=== PATIENT | female | born 1985 | race American Indian/Alaskan Native ===

== ENCOUNTER 2017-09-23 19:24 | Emergency (ER) | payer SELFPAY ==
[2017-09-23 20:03] LABS: Hemoglobin 12.1 gm/dl (10.1-14.3); Mean Corpuscular HGB Conc 34 % (30-34); Mean Corpuscular Hemoglobin 29 pg (28-32); Mean Corpuscular Volume 87 fl (79-97); Platelet Count 333 K/mm3 (140-440); Red Blood Count 4.13 M/mm3 (3.65-5.03); Red Cell Distribution Width 15.4 % (13.2-15.2)
[2017-09-23 20:17] LABS: INR 0.95 (0.87-1.13); Partial Thromboplastin Time 27.2 Sec. (24.2-36.6)
[2017-09-23 20:26] LABS: BUN/Creatinine Ratio 15; Blood Urea Nitrogen 9 mg/dL (7-17); Calcium 9.3 mg/dL (8.4-10.2); Hemolysis Index 2
[2017-09-23 20:43] LABS: Basophils % (Manual) 0 % (0.0-1.8); Total Cells Counted 100
[2017-09-23 20:45] LABS: RBC Morphology Normal
--- NOTE | 2017-09-23 21:00 | Cat Scan Report ---
FINAL REPORT PROCEDURE: CT HEAD/BRAIN WO CON TECHNIQUE: Computerized tomography of the head was performed without contrast material. HISTORY: neuro deficits < 6hrs or sx present upon awakening COMPARISON: No prior studies are available for comparison. FINDINGS: Skull and scalp: Normal. Paranasal sinuses: Normal. Ventricles and subarachnoid spaces: Normal. Cerebrum: No evidence of hemorrhage, acute infarction or mass . Cerebellum and brainstem: No evidence of hemorrhage, acute infarction or mass. Vasculature: Normal. Comments: None. IMPRESSION: Normal Examination
[2017-09-23] MEDS ORDERED: TYLENOL PO ONE (22:23)
[2017-09-23] MEDS ORDERED: MOTRIN PO ONE (22:23)
[2017-09-23] MEDS ORDERED: COMPAZINE PO ONE (22:23)
--- NOTE | 2017-09-23 23:01 | Emergency Department Report ---
ED General Adult HPI - General Chief complaint: Neuro Symptoms/Deficit Stated complaint: L SIDE WEAKNESS/CALZADA/DIZZINESS Time Seen by Provider: 09/23/17 21:29 Source: patient Mode of arrival: Ambulatory Limitations: No Limitations - History of Present Illness Initial comments: For the past 3 days, patient has had a constant frontal headache with light and sound sensitivity. It felt similar to her previous headaches. She was trying to tough it out at home. However, patient developed substernal intermittent nonradiating chest pain. The chest pain is pleuritic and exertional. Doesn't appear to be affected by food. Does have associated shortness of breath. Over the past couple of days, patient has had transient difficulty swallowing which she believes is due to neck stiffness or feeling like a lump is in her throat. Episodes will last for a couple minutes. She also has had in her mid and left arm/leg weakness, which lasted for 5 minutes. Patient was sitting on her couch earlier today and passed out without warning. This was unwitnessed event. She was not confused when she woke up. Never has had this before. She is unsure for how long she passed out. Smokes half pack per day. Drinks alcohol. No family history of ACS or a mass. Patient does have lupus, but is not taking any medication for it. She says that her lupus normally acts up after she gives . 2 months ago she gave to her son without any complications. Severity scale (0 -10): 6 - Related Data Allergies Allergy/AdvReac Type Severity Reaction Status Date / Time No Known Allergies Allergy Verified 09/23/17 22:31 ED Review of Systems ROS: Stated complaint: L SIDE WEAKNESS/CALZADA/DIZZINESS Other details as noted in HPI Comment: All other systems reviewed and negative ENT: other (difficulty swallowing) Respiratory: shortness of breath Cardiovascular: chest pain, syncope Neurological: headache, weakness, numbness ED Past Medical Hx - Past Medical History Previous Medical History?: Yes Hx Hypertension: Yes Additional medical history: lupus, - Surgical History Past Surgical History?: Yes Additional Surgical History: tubaligation, ovarian cyst - Social History Smoking Status: Current Every Day Smoker Substance Use Type: Alcohol ED Physical Exam - General Limitations: No Limitations General appearance: alert, in no apparent distress - Head Head exam: Present: atraumatic, normocephalic - Eye Eye exam: Present: normal appearance - ENT ENT exam: Present: normal orophraynx, mucous membranes moist - Neck Neck exam: Present: normal inspection - Respiratory Respiratory exam: Present: normal lung sounds bilaterally. Absent: respiratory distress - Cardiovascular Cardiovascular Exam: Present: regular rate, normal rhythm. Absent: systolic murmur, diastolic murmur, rubs, gallop - GI/Abdominal GI/Abdominal exam: Present: soft, normal bowel sounds. Absent: distended, tenderness, guarding, rebound - Extremities Exam Extremities exam: Present: normal inspection - Back Exam Back exam: Present: normal inspection - Neurological Exam Neurological exam: Present: alert, oriented X3, other (Left face/arm with decreased sensation. NIHSS 2) - Psychiatric Psychiatric exam: Present: normal affect, normal mood - Skin Skin exam: Present: warm, dry, intact, normal color. Absent: rash ED Course Vital Signs 09/23/17 09/24/17 19:40 00:51 Temperature 98.7 F 98.6 F Pulse Rate 70 84 Respiratory 16 17 Rate Blood Pressure 150/99 Blood Pressure 162/99 [Left] O2 Sat by Pulse 99 99 Oximetry - Reevaluation(s) Reevaluation #1: I told the patient the concern for lupus cerebritis versus multiple sclerosis given 20 of neurologic symptoms. I had ordered the patient MRI brain. An hour later, patient said that she wanted to leave and we talked to her family doctor about getting an outpatient MRI. She signed out AGAINST MEDICAL ADVICE. 09/24/17 05:46 ED Medical Decision Making - Lab Data Result diagrams: 09/23/17 19:53 09/23/17 19:53 - EKG Data -: EKG Interpreted by Me EKG shows normal: sinus rhythm, axis, intervals, QRS complexes, ST-T waves Rate: bradycardia - EKG Data Interpretation: no acute changes - Radiology Data Radiology results: report reviewed - Medical Decision Making 31-year-old female with past history of lupus presents with multiple complaints. Vital signs are stable. Patient is well-appearing. Endorses subjective decreased sensation in the left face and arm. This again for NIH stroke scale of 2. Patient is outside of the window for neurologic intervention. CT head, labs, and EKG are unremarkable. Given history of change in neurologic symptoms, including but not limited to difficulty swallowing, I feel the patient needs a MRI of her brain to exclude emergent pathology. I have started medication to control her headache. - Differential Diagnosis MS, lupus cerebritis, ICH, CVA, electrolyte abnormalities, conversion d/o Critical care attestation.: If time is entered above; I have spent that time in minutes in the direct care of this critically ill patient, excluding procedure time. ED Disposition Clinical Impression: Numbness Disposition: [id number] LEFT AGAINST MED ADVICE Is pt being admited?: No Does the pt Need Aspirin: No Condition: Stable Additional Instructions: Please follow up with your family doctor for an MRI head to exclude lupus cerebritis and multiple sclerosis as the cause of your symptoms. If something happens that worries you, please return to the ER immediately for re- evaluation. Referrals: PRIMARY CARE, [Primary Care Provider] - 3-5 Days
[2017-09-24] MEDS ORDERED: HALDOL IV ONE (00:26)
[2017-09-24 00:55] VITALS: BP 162/99
== END 2017-09-24 01:06 | disposition left against medical advice (07) ==
LOC: ED 19:24
DX: R20.0 Anesthesia of skin (principal); R51 Headache; R07.89 Other chest pain; R06.02 Shortness of breath; I10 Essential (primary) hypertension; F17.200 Nicotine dependence, unspecified, uncomplicated; M32.9 Systemic lupus erythematosus, unspecified; R13.10 Dysphagia, unspecified; Z98.51 Tubal ligation status
CPT/HCPCS: 36415; 70450; 80048; 84484; 84703; 85007; 85025; 85610; 85670; 85730; 93005; 93010; 96374; 99285; J1630; Q0164